=== PATIENT | female | born 1955 | race Caucasian/White ===

== ENCOUNTER → 2017-03-09 | Outpatient (CLI) | payer BC ==
[~2017-03-09] MED LIST: ASPI81TA2 PO; ATOR40TA64 PO; LISI10TA7 PO; SOTA120T PO
--- NOTE | 2017-03-09 08:26 | DI ---
Indication: ITS.REASON: R60.0 LE EDEMA,165.2 CAROTID STENOSIS PROCEDURE: US CAROTID DOPP COMPLETE: TECHNIQUE: Grayscale, color and duplex Doppler imaging was performed of the carotid systems bilaterally. Velocities in cm/sec - validated velocity measurements with angiographic measurements, velocity criteria are extrapolated from diameter data as defined by the Society of Radiologists in Ultrasound Consensus Conference Radiology 2003; 229;340-346. RIGHT: PSV ICA 113 EDV ICA 31 PSV CCA 67 EDV CCA 11 SVR 1.7 PSV ECA 82 ICA Diameter reduction of 20-40% LEFT: PSV ICA 175 EDV ICA 43 PSV CCA 85 EDV CCA 21 SVR 2.1 PSV ECA 81 ICA Diameter reduction 60%-80% (>2.0 PSV>150)% The right vertebral artery is patent with cephalic flow. The left vertebral artery is patent with cephalic flow. No significant plaque or elevated velocity on the right side. Plaque in the left carotid bulb and proximal ICA with velocity elevation. IMPRESSION: 1. 60-80% stenosis in the left proximal ICA. 2. No hemodynamically significant carotid stenosis on the right. .
== END ==
LOC: IMA 06:23
PROVIDERS: ATTEND Internal Medicine Cardiovascular Disease
DX: I65.22 Occlusion and stenosis of left carotid artery (principal)